=== PATIENT | female | born 1950 | race Two or more races ===

== ENCOUNTER 2017-03-21 07:01 | Outpatient (CLI) | payer OTHER ==
[~2017-03-21 07:01] MED LIST: ASPIR 8181 MG; CELEBREX100 MG PO; COZAAR25 MG; FLEXERIL10 MG PO; GLIPIZIDE5 MG; GLUCOPHAGE XR500 MG; INDAPAMIDE1.25 MG; NABUMETONE750 MG PO; PNEU16DI2; PREDNISONE5 MG/DOSE- PO; ROBITUSSIN COU PO; ZOLOFT25 MG
== END 2017-03-21 08:00 | disposition home or self-care (01) ==
LOC: NUCLEAR 07:01
DX: I20.9 Angina pectoris, unspecified (principal); R07.89 Other chest pain

== ENCOUNTER 2017-05-20 18:07 | Emergency (ER) | payer OTHER ==
[~2017-05-20] VITALS: Ht 165.1 cm; Wt 74.8 kg
== END 2017-05-21 00:27 | disposition home or self-care (01) ==
LOC: ER 18:07
DX: J11.1 Influenza due to unidentified influenza virus with other respiratory manifestations (principal)

== ENCOUNTER 2017-05-28 14:58 | Outpatient (CLI) | payer OTHER | END 2017-05-28 15:10 | disposition home or self-care (01) | LOC: TOM 14:58 | DX: J45.40 Moderate persistent asthma, uncomplicated (principal); R05 Cough; R06.02 Shortness of breath ==

== ENCOUNTER → 2017-07-23 | Emergency (ER) | payer OTHER ==
[~2017-07-23] VITALS: Ht 165.1 cm; Wt 77.1 kg
== END | disposition home or self-care (01) ==
LOC: ER 18:36
DX: M94.0 Chondrocostal junction syndrome [Tietze] (principal)

== ENCOUNTER 2017-08-01 07:18 | Outpatient (CLI) | payer OTHER | END 2017-08-01 07:24 | disposition home or self-care (01) | LOC: SONOGRAMA 07:18 → MAMO-SONO 08:45 | DX: E04.1 Nontoxic single thyroid nodule (principal); K76.0 Fatty (change of) liver, not elsewhere classified ==

== ENCOUNTER 2017-10-01 07:14 | Outpatient (CLI) | payer OTHER | END 2017-10-01 07:19 | disposition home or self-care (01) | LOC: SONOGRAMA 07:14 → MAMO-SONO 07:45 | DX: R10.9 Unspecified abdominal pain (principal) ==

== ENCOUNTER → 2018-04-28 | Outpatient (CLI) | payer OTHER | END | disposition home or self-care (01) | LOC: NUCLEAR 09:08 | DX: M81.0 Age-related osteoporosis without current pathological fracture (principal) ==

== ENCOUNTER 2018-05-01 14:23 | Outpatient (CLI) | payer OTHER | END 2018-05-01 14:24 | disposition home or self-care (01) | LOC: LAB 14:23 | DX: E11.9 Type 2 diabetes mellitus without complications (principal); I10 Essential (primary) hypertension; E03.8 Other specified hypothyroidism; E78.2 Mixed hyperlipidemia; D64.89 Other specified anemias ==

== ENCOUNTER → 2018-05-01 | Outpatient (CLI) | payer OTHER | END | disposition home or self-care (01) | LOC: TOM 07:45 → RAD 07:45 | DX: N62 Hypertrophy of breast (principal); E04.1 Nontoxic single thyroid nodule; R10.9 Unspecified abdominal pain ==

== ENCOUNTER 2018-07-07 14:08 | Outpatient (CLI) | payer OTHER | END 2018-07-07 14:52 | disposition home or self-care (01) | LOC: TOM 14:08 | DX: I63.89 Other cerebral infarction (principal) ==

== ENCOUNTER 2018-10-01 07:36 | Outpatient (CLI) | payer OTHER | END 2018-10-01 07:56 | disposition home or self-care (01) | LOC: SONOGRAMA 07:36 → MAMO-SONO 08:15 | DX: K76.0 Fatty (change of) liver, not elsewhere classified (principal); R16.0 Hepatomegaly, not elsewhere classified ==

== ENCOUNTER 2019-01-06 11:04 | Emergency (ER) | payer OTHER ==
[~2019-01-06] VITALS: Ht 162.6 cm; Wt 78.5 kg
== END 2019-01-06 15:04 | disposition home or self-care (01) ==
LOC: ER 11:04
DX: K29.70 Gastritis, unspecified, without bleeding (principal)

== ENCOUNTER → 2019-01-24 | Outpatient (CLI) | payer OTHER | END | disposition home or self-care (01) | LOC: RAD 08:57 | DX: R06.02 Shortness of breath (principal) ==

== ENCOUNTER → 2019-04-12 | Emergency (ER) | payer OTHER ==
[~2019-04-12] VITALS: Ht 165.1 cm; Wt 78.0 kg
[~2019-04-12] MED LIST changes: +SINGULAIR 10MG10 MG PO
== END | disposition home or self-care (01) ==
LOC: ER 22:43
DX: R00.2 Palpitations (principal); I10 Essential (primary) hypertension; F06.4 Anxiety disorder due to known physiological condition

== ENCOUNTER 2019-10-11 14:12 | Outpatient (CLI) | payer OTHER | END 2019-10-11 14:20 | disposition home or self-care (01) | LOC: RAD 14:12 | PROVIDERS: ATTEND Internal Medicine Pulmonary Disease | DX: J45.40 Moderate persistent asthma, uncomplicated (principal); R07.1 Chest pain on breathing ==

== ENCOUNTER 2019-12-24 14:48 | Outpatient (CLI) | payer OTHER | END 2019-12-24 15:43 | disposition home or self-care (01) | LOC: TOM 14:48 | PROVIDERS: ATTEND Internal Medicine Gastroenterology | DX: R10.84 Generalized abdominal pain (principal) ==

== ENCOUNTER → 2020-05-24 | Outpatient (CLI) | payer OTHER | END | disposition home or self-care (01) | LOC: TOM 14:45 | PROVIDERS: ATTEND Internal Medicine Pulmonary Disease | DX: Q33.0 Congenital cystic lung (principal); R07.89 Other chest pain; R06.02 Shortness of breath; J45.40 Moderate persistent asthma, uncomplicated ==

== ENCOUNTER 2020-08-18 12:42 | Outpatient (CLI) | payer OTHER | END 2020-08-18 12:52 | disposition home or self-care (01) | LOC: RAD 12:42 | PROVIDERS: ATTEND Specialist | DX: M77.9 Enthesopathy, unspecified (principal); J45.998 Other asthma ==

== ENCOUNTER 2020-09-05 10:30 | Outpatient (CLI) | payer OTHER | END 2020-09-05 10:31 | disposition home or self-care (01) | LOC: NUCLEAR 10:30 | PROVIDERS: ATTEND Specialist | DX: I70.213 Atherosclerosis of native arteries of extremities with intermittent claudication, bilateral legs (principal) ==

== ENCOUNTER 2020-09-05 11:13 | Outpatient (CLI) | payer OTHER | END 2020-09-05 11:21 | disposition home or self-care (01) | LOC: MAMO-SONO 11:13 | PROVIDERS: ATTEND Specialist | DX: Z12.31 Encounter for screening mammogram for malignant neoplasm of breast (principal); Z87.898 Personal history of other specified conditions; Z80.3 Family history of malignant neoplasm of breast; Z12.11 Encounter for screening for malignant neoplasm of colon ==

== ENCOUNTER 2021-01-26 07:12 | Outpatient (CLI) | payer OTHER | END 2021-01-26 14:07 | disposition home or self-care (01) | LOC: TOM 07:12 | PROVIDERS: ATTEND Specialist | DX: R07.89 Other chest pain (principal); J47.0 Bronchiectasis with acute lower respiratory infection; N28.89 Other specified disorders of kidney and ureter; E11.21 Type 2 diabetes mellitus with diabetic nephropathy ==

== ENCOUNTER 2021-03-20 10:48 | Outpatient (CLI) | payer OTHER | END 2021-03-20 10:57 | disposition home or self-care (01) | LOC: MRI 10:48 | PROVIDERS: ATTEND Obstetrics & Gynecology | DX: N85.8 Other specified noninflammatory disorders of uterus (principal); R10.2 Pelvic and perineal pain; R93.89 Abnormal findings on diagnostic imaging of other specified body structures | CPT/HCPCS: 72197; A9575; 72196 ==

== ENCOUNTER 2021-05-11 10:19 | Outpatient (CLI) | payer OTHER | END 2021-05-11 10:26 | disposition home or self-care (01) | LOC: EKG 10:19 | PROVIDERS: ATTEND Obstetrics & Gynecology | DX: R07.89 Other chest pain (principal); I10 Essential (primary) hypertension ==

== ENCOUNTER 2021-05-23 08:48 | Day surgery (SDC) | payer OTHER ==
[~2021-05-23 08:48] MED LIST changes: +ZOLOFT25 MG PO
== END 2021-05-23 18:35 | disposition home or self-care (01) ==
LOC: CIR.AMB 08:48
PROVIDERS: ATTEND Obstetrics & Gynecology
DX: N84.0 Polyp of corpus uteri (principal)

== ENCOUNTER 2021-05-28 08:12 | Outpatient (CLI) | payer OTHER | END 2021-05-28 08:17 | disposition home or self-care (01) | LOC: MRI → SONOGRAMA 08:12 | PROVIDERS: ATTEND Specialist | DX: K75.81 Nonalcoholic steatohepatitis (NASH) (principal) ==

== ENCOUNTER 2021-10-08 14:19 | Emergency (ER) | payer OTHER ==
[~2021-10-08] VITALS: Ht 165.1 cm; Wt 77.1 kg
[2021-10-08] MEDS ORDERED: CYCLOBENZAPRINE10 MG PO (19:37)
== END 2021-10-08 20:17 | disposition home or self-care (01) ==
LOC: ER 14:19
DX: F41.8 Other specified anxiety disorders (principal); E11.9 Type 2 diabetes mellitus without complications; Z79.84 Long term (current) use of oral hypoglycemic drugs; I10 Essential (primary) hypertension; M79.89 Other specified soft tissue disorders; M79.602 Pain in left arm

== ENCOUNTER 2022-03-25 14:26 | Outpatient (CLI) | payer OTHER ==
[~2022-03-25 14:26] MED LIST changes: +CYCLOBENZAPRINE10 MG PO
== END 2022-03-25 14:32 | disposition home or self-care (01) ==
LOC: RAD 14:26
PROVIDERS: ATTEND Specialist
DX: I25.118 Atherosclerotic heart disease of native coronary artery with other forms of angina pectoris (principal); I10 Essential (primary) hypertension

== ENCOUNTER 2022-07-19 09:01 | Emergency (ER) | payer OTHER ==
[~2022-07-19] VITALS: Ht 165.1 cm; Wt 76.2 kg
[2022-07-19] MEDS ORDERED: ATORVASTATIN CA40 MG PO (09:20)
== END 2022-07-19 12:04 | disposition home or self-care (01) ==
LOC: ER 09:01
DX: J20.9 Acute bronchitis, unspecified (principal); E11.9 Type 2 diabetes mellitus without complications; Z79.84 Long term (current) use of oral hypoglycemic drugs; I10 Essential (primary) hypertension; E78.00 Pure hypercholesterolemia, unspecified

== ENCOUNTER 2022-08-27 08:52 | Outpatient (CLI) | payer OTHER ==
[~2022-08-27 08:52] MED LIST changes: +ATORVASTATIN CA40 MG PO
== END 2022-08-27 09:10 | disposition home or self-care (01) ==
LOC: RAD 08:52
PROVIDERS: ATTEND Specialist
DX: G46.4 Cerebellar stroke syndrome (principal); N60.11 Diffuse cystic mastopathy of right breast; Z12.31 Encounter for screening mammogram for malignant neoplasm of breast
CPT/HCPCS: 70460; 76641; 77067; Q9965

== ENCOUNTER 2022-12-26 16:00 | Emergency (ER) | payer OTHER | END 2022-12-26 22:38 | disposition home or self-care (01) | LOC: ER | DX: M54.89 Other dorsalgia (principal); E11.9 Type 2 diabetes mellitus without complications; Z79.84 Long term (current) use of oral hypoglycemic drugs; I10 Essential (primary) hypertension | CPT/HCPCS: 74176; 96372; 99283; J1885 ==

== ENCOUNTER 2023-01-24 07:42 | Outpatient (CLI) | payer OTHER | END 2023-01-24 07:46 | disposition home or self-care (01) | LOC: TOM 07:42 | PROVIDERS: ATTEND Specialist | DX: S22.041A Stable burst fracture of fourth thoracic vertebra, initial encounter for closed fracture (principal); S22.001A Stable burst fracture of unspecified thoracic vertebra, initial encounter for closed fracture; K80.10 Calculus of gallbladder with chronic cholecystitis without obstruction ==

== ENCOUNTER 2023-02-26 11:24 | Outpatient (CLI) | payer OTHER | END 2023-02-26 11:29 | disposition home or self-care (01) | LOC: RAD 11:24 | PROVIDERS: ATTEND Physical Medicine & Rehabilitation | DX: M54.50 Low back pain, unspecified (principal) ==

== ENCOUNTER 2023-02-27 12:59 | Outpatient (CLI) | payer OTHER | END 2023-02-27 13:03 | disposition home or self-care (01) | LOC: MRI 12:59 | PROVIDERS: ATTEND Physical Medicine & Rehabilitation | DX: M54.16 Radiculopathy, lumbar region (principal); R29.2 Abnormal reflex; R42 Dizziness and giddiness | CPT/HCPCS: 72141; 72148 ==

== ENCOUNTER 2023-07-21 13:42 | Outpatient (CLI) | payer OTHER | END 2023-07-21 13:48 | disposition home or self-care (01) | LOC: RAD 13:42 | PROVIDERS: ATTEND Internal Medicine Hematology & Oncology | DX: J16.0 Chlamydial pneumonia (principal); R09.1 Pleurisy ==

== ENCOUNTER → 2024-07-05 | Outpatient (CLI) | payer OTHER ==
[~2024-07-05] MED LIST changes: +COZAAR25 MG PO; +GLIPIZIDE XL2.5 MG PO; +INTESTINEX680 M1 PO; +LEVSIN/SL0.125 MG SL; +METFORMIN HCL500 M3 PO
== END | disposition home or self-care (01) ==
LOC: TOM 10:05
PROVIDERS: ATTEND Specialist
DX: M48.46XA Fatigue fracture of vertebra, lumbar region, initial encounter for fracture (principal); E03.9 Hypothyroidism, unspecified

== ENCOUNTER 2024-07-06 20:34 | Emergency (ER) | payer OTHER ==
[~2024-07-06] VITALS: Ht 165.1 cm; Wt 74.4 kg
[~2024-07-06 20:34] MED LIST changes: -INTESTINEX680 M1 PO; -LEVSIN/SL0.125 MG SL
[2024-07-06] MEDS ORDERED: 0.9 % SODIUM CHLORIDE 1,000 ML IV SCH (20:54)
[2024-07-06 21:30] LABS: HEMATOCRIT 43.8 % (36.0-45.00); HEMOGLOBIN 14.6 g/dL (12.0-15.00); MEAN CELL VOLUME 90.1 fL (80.00-100.00); MEAN CORPUSCULAR HEMOGLOBIN 30.1 pg (27.00-32.0); MEAN CORPUSCULAR HGB CONC 33.4 g/dl (32.0-36.0); PLATELET COUNT 275 K/uL (150-450); RED BLOOD COUNT 4.86 M/uL (4.00-6.00); RED CELL DISTRIBUTION WIDTH 13.7 % (11.5-14.5)
[2024-07-06 22:01] LABS: PH,URINE 5.5 (5.0-8.0); URINE APPEARANCE Clear; URINE BILIRRUBIN Negative (NEGATIVE); URINE BLOOD Negative; URINE COLOR Dark Yellow; URINE GLUCOSE Negative (NEGATIVE); URINE KETONE Trace (NEGATIVE); URINE LEUKOCYTE Moderate; URINE NITRATE Negative; URINE PROTEIN 30 (NEGATIVE); URINE UROBILINOGEN 0.2 E.U./dl
[2024-07-06 22:05] LABS: URINE BACTERIA 165.2 uL (0.0-1933); URINE EPITHELIAL CELLS 9.6 uL (0.0-38.8); URINE WBC 73.2 uL (0.0-23.2)
[2024-07-06 22:10] LABS: URINE CAST 0.44 uL (0.0-1.40)
[2024-07-06 22:28] LABS: CALCIUM 10.2 mg/dL (8.5-10.1); CREATININE SERUM 0.85 mg/dL (0.55-1.02); GFR 65.56; POTASSIUM 4.31 mEq/L (3.5-5.1)
[2024-07-07] MEDS ORDERED: INTESTINEX680 M1 PO (01:00)
[2024-07-07] MEDS ORDERED: LEVSIN/SL0.125 MG SL (01:00)
== END 2024-07-07 01:17 ==
LOC: ER 20:37
PROVIDERS: Emergency Medicine
DX: K52.9 Noninfective gastroenteritis and colitis, unspecified (principal); I10 Essential (primary) hypertension; E11.9 Type 2 diabetes mellitus without complications; Z79.84 Long term (current) use of oral hypoglycemic drugs
CPT/HCPCS: 36415; 96365; 96366; 99282; J7030

== ENCOUNTER 2024-12-10 12:44 | Outpatient (CLI) | payer OTHER ==
[~2024-12-10 12:44] MED LIST changes: +INTESTINEX680 M1 PO; +LEVSIN/SL0.125 MG SL
== END 2024-12-10 12:51 | disposition home or self-care (01) ==
LOC: SONOGRAMA 12:44
PROVIDERS: ATTEND Internal Medicine
DX: E03.1 Congenital hypothyroidism without goiter (principal)